=== PATIENT | male | born 1970 | race Caucasian/White ===

== ENCOUNTER 2017-09-24 16:02 | Inpatient (IN) | payer BC ==
[2017-09-24] MEDS ORDERED: SODIUM CHLORIDE 0.9% 2,000 ML IV ONE (16:17)
[2017-09-24] MEDS ORDERED: SODIUM CHLORIDE 0.9% 1,000 ML IV SCH (16:30)
[2017-09-24] MEDS ORDERED: INSULIN REGULAR BOLUS (FROM DRIP BAG) IV ONE (16:35)
--- NOTE | 2017-09-24 16:45 | ED ---
Recheck HPI - General Source: patient, RN notes reviewed, old records reviewed Mode of arrival: EMS Limitations: no limitations <Renetta Perkins - Last Filed: 09/24/17 18:18> <Sharad Nicole - Last Filed: 09/25/17 00:28> - General Chief Complaint: Recheck/Abnormal Lab/Rx Stated Complaint: hyperglycemia Time Seen by Provider: 09/24/17 16:05 - History of Present Illness Initial Comments: 47-year-old male presents emergency department today with increased thirst, fatigue, and feelings of constipation over the past 3 days. He reports he's not had a bowel movement. He reports that over the past 3 weeks she's had increased polyuria. No significan Past medical history. 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 Patient states that he has had no significant abdominal surgeries or major medical history. He states that his throat and mouth feels very dry. EMS blood sugar read above 600. Patient has no history of diabetes. (Renetta Perkins) - Related Data Home Medications Medication Instructions Recorded Confirmed No Known Home Medications 09/24/17 09/24/17 Allergies Allergy/AdvReac Type Severity Reaction Status Date / Time No Known Allergies Allergy Verified 09/24/17 18:49 Review of Systems ROS Other: All systems not noted in ROS Statement are negative. <Renetta Perkins - Last Filed: 09/24/17 18:18> ROS Other: All systems not noted in ROS Statement are negative. <Sharad Nicole - Last Filed: 09/25/17 00:28> ROS Statement: Those systems with pertinent positive or pertinent negative responses have been documented in the HPI. Past Medical History Past Medical History: No Reported History History of Any Multi-Drug Resistant Organisms: None Reported Past Surgical History: No Surgical Hx Reported Past Psychological History: No Psychological Hx Reported Smoking Status: Never smoker Past Alcohol Use History: None Reported Past Drug Use History: None Reported <Renetta Perkins - Last Filed: 09/24/17 18:18> General Exam Limitations: no limitations General appearance: alert, in no apparent distress Head exam: Present: atraumatic, normocephalic, normal inspection Eye exam: Present: normal appearance, PERRL, EOMI. Absent: scleral icterus, conjunctival injection, periorbital swelling ENT exam: Present: normal exam, mucous membranes dry (Patient has dry oropharynx. Fruity odor breath on examination.), mucous membranes moist. Absent: normal oropharynx Neck exam: Present: normal inspection. Absent: tenderness, meningismus, lymphadenopathy Respiratory exam: Present: normal lung sounds bilaterally. Absent: respiratory distress, wheezes, rales, rhonchi, stridor Cardiovascular Exam: Present: regular rate, normal rhythm, normal heart sounds. Absent: systolic murmur, diastolic murmur, rubs, gallop, clicks GI/Abdominal exam: Present: soft, normal bowel sounds. Absent: distended, tenderness, guarding, rebound, rigid Extremities exam: Present: normal inspection, full ROM, normal capillary refill. Absent: tenderness, pedal edema, joint swelling, calf tenderness Back exam: Present: normal inspection Neurological exam: Present: alert, oriented X3, CN II-XII intact Psychiatric exam: Present: normal affect, normal mood Skin exam: Present: warm, dry, intact, normal color. Absent: rash <Renetta Perkins - Last Filed: 09/24/17 18:18> <Sharad Nicole - Last Filed: 09/25/17 00:28> - General Exam Comments Initial Comments: 47-year-old male. Alert and oriented. No significant distress. (Renetta Perkins) Vital Signs 09/24/17 09/24/17 09/24/17 16:10 16:27 16:35 Temperature 97.7 F Pulse Rate 114 H 113 H Pulse Rate [ 114 H Print Traffic Manager ] Respiratory 22 20 Rate Blood Pressure 153/86 148/85 Blood Pressure [Right Arm] O2 Sat by Pulse 98 96 Oximetry 09/24/17 09/24/17 09/24/17 17:30 18:30 18:45 Temperature 99.9 F H Pulse Rate 106 H 110 H 106 H Pulse Rate [ Print Traffic Manager ] Respiratory 20 20 24 Rate Blood Pressure 151/91 168/78 145/81 Blood Pressure [Right Arm] O2 Sat by Pulse 97 99 95 Oximetry 09/24/17 09/24/17 09/24/17 19:15 20:08 20:16 Temperature 97.8 F Pulse Rate 110 H 105 H Pulse Rate [ 107 H Print Traffic Manager ] Respiratory 24 20 18 Rate Blood Pressure 144/98 127/77 Blood Pressure 133/88 [Right Arm] O2 Sat by Pulse 95 98 97 Oximetry 09/24/17 09/24/17 21:18 21:42 Temperature 97.9 F Pulse Rate 105 H 107 H Pulse Rate [ Print Traffic Manager ] Respiratory 18 Rate Blood Pressure 147/89 109/66 Blood Pressure [Right Arm] O2 Sat by Pulse 95 95 Oximetry Medical Decision Making - Lab Data Result diagrams: 09/24/17 16:33 09/24/17 16:33 - Radiology Data Radiology results: report reviewed <Renetta Perkins - Last Filed: 09/24/17 18:18> - Lab Data Result diagrams: 09/24/17 18:50 09/24/17 23:07 <Sharad Nicole - Last Filed: 09/25/17 00:28> - Medical Decision Making 7-year-old male with no past medical history presents with 3 days of fatigue, increased thirst, concern for constipation. Patient's blood sugar and EMS was about 600. Never had a history of diabetes. Patient's started on IV fluids and labs obtained. Blood sugar found to be 1513. Potassium of 7.3, slightly hemolyzed. CO2 10.Sodium of 133, chloride 90. BUN is 54. Creatinine of 2.0. Patient has an elevated lactic acid of 4.0. Acetone is positive. Patient is a new-onset diabetic with significant acidosis. Patient had an ABG completed. Patient was given a 3 L bolus and started on insulin bolus and maintenance insulin. Patient was admitted to the ICU. Consult to Dr. Conner. (Renetta Perkins) 47-year-old male with fatigue, polydipsia presenting with new-onset diabetes. Patient is found to be in HHS and DKA. Patient is tachypneic, tachycardic with dry mucous membranes. He is given normal saline bolus in the emergency department, laboratory studies reveal significant abnormalities including hyperkalemia, metabolic acidosis, CO2 of 10, sugar of 1500. Patient is started on insulin drip after insulin bolus. He will be continued to give normal saline boluses. Case is discussed with both Dr. Conner regarding ICU management as well as admitting physician Dr. Bell (Sharad Nicole) - Lab Data Lab Results 09/24/17 09/24/17 09/24/17 Range/Units 16:33 16:33 16:33 WBC 10.1 (3.8-10.6) k/uL RBC 5.60 (4.30-5.90) m/uL Hgb 15.8 (13.0-17.5) gm/dL Hct 55.3 H (39.0-53.0) % MCV 98.8 (80.0-100.0) fL MCH 28.3 (25.0-35.0) pg MCHC 28.6 L (31.0-37.0) g/dL RDW 13.9 (11.5-15.5) % Plt Count 302 (150-450) k/uL Neutrophils % 89 % Lymphocytes % 5 % Monocytes % 5 % Eosinophils % 0 % Basophils % 0 % Neutrophils # 9.0 H (1.3-7.7) k/uL Lymphocytes # 0.5 L (1.0-4.8) k/uL Monocytes # 0.5 (0-1.0) k/uL Eosinophils # 0.0 (0-0.7) k/uL Basophils # 0.0 (0-0.2) k/uL Hypochromasia Marked Sodium 133 L (137-145) mmol/L Potassium 7.3 H* (3.5-5.1) mmol/L Chloride 90 L (98-107) mmol/L Carbon Dioxide 10 L* (22-30) mmol/L Anion Gap 33 mmol/L BUN 54 H (9-20) mg/dL Creatinine 2.00 H (0.66-1.25) mg/dL Est GFR (CKD-EPI)AfAm 44 (>60 ml/min/1.73 sqM) Est GFR (CKD-EPI)NonAf 38 (>60 ml/min/1.73 sqM) Glucose 1513 H* (74-99) mg/dL POC Glucose (mg/dL) (75-99) mg/dL POC Glu Ski Lift Mechanic ID Lactic Ac Sepsis Rflx Plasma Lactic Acid Alfonso 4.0 H* (0.7-2.0) mmol/L Calcium 9.3 (8.4-10.2) mg/dL Total Bilirubin 1.4 H (0.2-1.3) mg/dL AST 31 (17-59) U/L ALT 33 (21-72) U/L Alkaline Phosphatase 151 H (38-126) U/L Total Protein 7.9 (6.3-8.2) g/dL Albumin 4.8 (3.5-5.0) g/dL Urine Color Urine Appearance (Clear) Urine pH (5.0-8.0) Ur Specific [place] (1.001-1.035) Urine Protein (Negative) Urine Glucose (UA) (Negative) Urine Ketones (Negative) Urine Blood (Negative) Urine Nitrite (Negative) Urine Bilirubin (Negative) Urine Urobilinogen (<2.0) mg/dL Ur Leukocyte Esterase (Negative) Urine RBC (0-5) /hpf Urine WBC (0-5) /hpf Urine Mucus (None) /hpf Acetone, Qual Positive (Negative) 09/24/17 09/24/17 09/24/17 Range/Units 16:59 17:10 17:23 WBC (3.8-10.6) k/uL RBC (4.30-5.90) m/uL Hgb (13.0-17.5) gm/dL Hct (39.0-53.0) % MCV (80.0-100.0) fL MCH (25.0-35.0) pg MCHC (31.0-37.0) g/dL RDW (11.5-15.5) % Plt Count (150-450) k/uL Neutrophils % % Lymphocytes % % Monocytes % % Eosinophils % % Basophils % % Neutrophils # (1.3-7.7) k/uL Lymphocytes # (1.0-4.8) k/uL Monocytes # (0-1.0) k/uL Eosinophils # (0-0.7) k/uL Basophils # (0-0.2) k/uL Hypochromasia Sodium (137-145) mmol/L Potassium (3.5-5.1) mmol/L Chloride (98-107) mmol/L Carbon Dioxide (22-30) mmol/L Anion Gap mmol/L BUN (9-20) mg/dL Creatinine (0.66-1.25) mg/dL Est GFR (CKD-EPI)AfAm (>60 ml/min/1.73 sqM) Est GFR (CKD-EPI)NonAf (>60 ml/min/1.73 sqM) Glucose (74-99) mg/dL POC Glucose (mg/dL) >600 H (75-99) mg/dL POC Glu Ski Lift Mechanic ID Gonzalo Lopez Lactic Ac Sepsis Rflx Y Plasma Lactic Acid Alfonso (0.7-2.0) mmol/L Calcium (8.4-10.2) mg/dL Total Bilirubin (0.2-1.3) mg/dL AST (17-59) U/L ALT (21-72) U/L Alkaline Phosphatase (38-126) U/L Total Protein (6.3-8.2) g/dL Albumin (3.5-5.0) g/dL Urine Color Light Yellow Urine Appearance Clear (Clear) Urine pH 5.0 (5.0-8.0) Ur Specific [place] 1.024 (1.001-1.035) Urine Protein Negative (Negative) Urine Glucose (UA) 4+ H (Negative) Urine Ketones 2+ H (Negative) Urine Blood Small H (Negative) Urine Nitrite Negative (Negative) Urine Bilirubin Negative (Negative) Urine Urobilinogen <2.0 (<2.0) mg/dL Ur Leukocyte Esterase Negative (Negative) Urine RBC <1 (0-5) /hpf Urine WBC 1 (0-5) /hpf Urine Mucus Rare H (None) /hpf Acetone, Qual (Negative) 09/24/17 Range/Units 17:52 WBC (3.8-10.6) k/uL RBC (4.30-5.90) m/uL Hgb (13.0-17.5) gm/dL Hct (39.0-53.0) % MCV (80.0-100.0) fL MCH (25.0-35.0) pg MCHC (31.0-37.0) g/dL RDW (11.5-15.5) % Plt Count (150-450) k/uL Neutrophils % % Lymphocytes % % Monocytes % % Eosinophils % % Basophils % % Neutrophils # (1.3-7.7) k/uL Lymphocytes # (1.0-4.8) k/uL Monocytes # (0-1.0) k/uL Eosinophils # (0-0.7) k/uL Basophils # (0-0.2) k/uL Hypochromasia Sodium (137-145) mmol/L Potassium (3.5-5.1) mmol/L Chloride (98-107) mmol/L Carbon Dioxide (22-30) mmol/L Anion Gap mmol/L BUN (9-20) mg/dL Creatinine (0.66-1.25) mg/dL Est GFR (CKD-EPI)AfAm (>60 ml/min/1.73 sqM) Est GFR (CKD-EPI)NonAf (>60 ml/min/1.73 sqM) Glucose (74-99) mg/dL POC Glucose (mg/dL) >600 H (75-99) mg/dL POC Glu Ski Lift Mechanic ID Gonzalo Lopez Lactic Ac Sepsis Rflx Plasma Lactic Acid Alfonso (0.7-2.0) mmol/L Calcium (8.4-10.2) mg/dL Total Bilirubin (0.2-1.3) mg/dL AST (17-59) U/L ALT (21-72) U/L Alkaline Phosphatase (38-126) U/L Total Protein (6.3-8.2) g/dL Albumin (3.5-5.0) g/dL Urine Color Urine Appearance (Clear) Urine pH (5.0-8.0) Ur Specific [place] (1.001-1.035) Urine Protein (Negative) Urine Glucose (UA) (Negative) Urine Ketones (Negative) Urine Blood (Negative) Urine Nitrite (Negative) Urine Bilirubin (Negative) Urine Urobilinogen (<2.0) mg/dL Ur Leukocyte Esterase (Negative) Urine RBC (0-5) /hpf Urine WBC (0-5) /hpf Urine Mucus (None) /hpf Acetone, Qual (Negative) 09/24/17 18:20 EKG performed at 1614. Sinus tachycardia. Otherwise normal EKG. Ventricular rate of 113. [place] interval is 148. QRS duration 68. QT QTc is 3:30/452. ( Renetta Perkins) - Radiology Data Chest x-rays negative for any acute cardiopulmonary disease. No acute abdomen. (Renetta Perkins) Critical Care Time Critical Care Time: Yes Total Critical Care Time: 35 <Sharad Nicole - Last Filed: 09/25/17 00:28> Disposition Is patient prescribed a controlled substance at d/c from ED?: No Time of Disposition: 18:22 <Renetta Perkins - Last Filed: 09/24/17 18:18> <Sharad Nicole - Last Filed: 09/25/17 00:28> Clinical Impression: DKA (diabetic ketoacidoses), Diabetes mellitus, new onset, Hyperkalemia, Renal insufficiency Disposition: ADMITTED IP TO THIS HOSP Condition: Good
[2017-09-24 17:01] LABS: Glucose,Whole Blood >600 mg/dL (75-99)
[2017-09-24 17:25] LABS: ALT 33 U/L (21-72); AST 31 U/L (17-59); Albumin 4.8 g/dL (3.5-5.0); Alkaline Phosphatase 151 U/L (38-126); Anion Gap 33 mmol/L; Blood Urea Nitrogen 54 mg/dL (9-20); Calcium 9.3 mg/dL (8.4-10.2); Chloride 90 mmol/L (98-107); Sodium 133 mmol/L (137-145); Total Bilirubin 1.4 mg/dL (0.2-1.3); Total Protein 7.9 g/dL (6.3-8.2)
--- NOTE | 2017-09-24 17:26 | XR ---
EXAMINATION TYPE: XR chest 2V DATE OF EXAM: 09/24/2017 COMPARISON: NONE HISTORY: Hyperglycemia weakness TECHNIQUE: Frontal and lateral views of the chest are obtained. FINDINGS: There is poor inspiration. There is no heart failure nor confluent pneumonic infiltrate. H eart size is normal. There is no pleural effusion. There are chest leads. Bony thorax is intact. IMPRESSION: No active cardiopulmonary disease.
--- NOTE | 2017-09-24 17:27 | XR ---
EXAMINATION TYPE: XR KUB DATE OF EXAM: 09/24/2017 COMPARISON: NONE HISTORY: Hyperglycemia TECHNIQUE: 2 views FINDINGS: There is no sign of intestinal obstruction or pneumoperitoneum. There is a large fluid-fill ed stomach. There is no evidence of a mass. Lung bases are clear. There are no pathologic calcificati ons over the kidneys. IMPRESSION: Nonacute abdomen.
[2017-09-24 17:39] LABS: Basophils % (A) 0 %; Eosinophils % (A) 0 %; HGB 15.8 gm/dL (13.0-17.5); Hypochromasia Marked; Lymphocytes # (A) 0.5 k/uL (1.0-4.8); Lymphocytes % (A) 5 %; MCH 28.3 pg (25.0-35.0); MCHC 28.6 g/dL (31.0-37.0); MCV 98.8 fL (80.0-100.0); Mean Platelet Volume 10.5; Monocytes # (A) 0.5 k/uL (0-1.0); Monocytes % (A) 5 %; Neutrophils % (A) 89 %; Platelet Count 302 k/uL (150-450); RDW 13.9 % (11.5-15.5); WBC 10.1 k/uL (3.8-10.6)
[2017-09-24 17:40] LABS: HCT 55.3 % (39.0-53.0)
[2017-09-24 17:43] LABS: Carbon Dioxide 10 mmol/L (22-30)
[2017-09-24 17:44] LABS: Potassium 7.3 mmol/L (3.5-5.1)
[2017-09-24 17:45] LABS: Glucose 1513 mg/dL (74-99)
[2017-09-24 17:47] LABS: Appearance,Urine Clear (Clear); Bilirubin,Urine Negative (Negative); Blood,Urine Small (Negative); Color,Urine Light Yellow; Glucose,Urine (UA) 4+ (Negative); Leukocyte Esterase,Urine Negative (Negative); Mucus,Urine Rare /hpf; Nitrite,Urine Negative (Negative); Protein,Urine Negative (Negative); RBC,Urine <1 /hpf (0-5); Specific Gravity,Urine 1.024 (1.001-1.035); Urobilinogen,Urine <2.0 mg/dL (<2.0); WBC,Urine 1 /hpf (0-5)
[2017-09-24 17:50] LABS: Ketones,Urine 2+ (Negative)
[2017-09-24] MEDS: INSULIN REGULAR 100 UNIT in SODIUM CHLORIDE 0.9% 100 ML IV SCH ×2 (17:52→17:54)
[2017-09-24 17:55] LABS: Glucose,Whole Blood >600 mg/dL (75-99)
[2017-09-24] MEDS ORDERED: SODIUM CHLORIDE 0.9% 1,000 ML IV ONE ×4 (17:56→19:10)
[2017-09-24] MEDS ORDERED: Magnesium Replacement Protocol 1 EACH MISC MISCELLANE PRN (18:23)
[2017-09-24] MEDS ORDERED: Potassium Replacement Protocol 1 EACH MISC MISCELLANE PRN (18:23)
[2017-09-24] MEDS ORDERED: ACETAMINOPHEN TAB 325 MG TAB PO PRN (18:24)
[2017-09-24] MEDS ORDERED: HYDROcodone/APAP 5-325MG 1 EACH TAB PO PRN (18:24)
[2017-09-24] MEDS ORDERED: NALOXONE 0.4 MG/ML 1 ML VIAL IV PRN (18:24)
[2017-09-24 18:26] LABS: ABG Base Excess -19.2 mmol/L; ABG PCO2 26 mmHg (35-45); ABG PO2 113 mmHg (83-108); ABG TCO2 10 mmol/L (19-24)
[2017-09-24 18:31] LABS: ABG HCO3 9 mmol/L (21-25); ABG PH 7.17 (7.35-7.45)
[2017-09-24 19:04] LABS: Glucose,Whole Blood >600 mg/dL (75-99)
[2017-09-24 19:22] LABS: Basophils % (A) 0 %; Eosinophils % (A) 0 %; HCT 51.2 % (39.0-53.0); HGB 15.3 gm/dL (13.0-17.5); Hypochromasia Marked; Lymphocytes # (A) 0.5 k/uL (1.0-4.8); Lymphocytes % (A) 4 %; MCH 28.3 pg (25.0-35.0); MCHC 29.8 g/dL (31.0-37.0); MCV 94.9 fL (80.0-100.0); Mean Platelet Volume 8.8; Monocytes # (A) 0.6 k/uL (0-1.0); Monocytes % (A) 4 %; Neutrophils # (A) 12.4 k/uL (1.3-7.7); Neutrophils % (A) 92 %; Platelet Count 326 k/uL (150-450); RBC 5.39 m/uL (4.30-5.90); RDW 13.9 % (11.5-15.5); WBC 13.6 k/uL (3.8-10.6)
[2017-09-24 19:35] LABS: Calcium 8.7 mg/dL (8.4-10.2); Potassium 4.8 mmol/L (3.5-5.1)
--- NOTE | 2017-09-24 20:23 | P.HPIM ---
History of Present Illness H&P Date: 09/24/17 Chief Complaint: Fatigue Patient is a 47-year-old male with no known past medical history who presented to the ER with complaints of fatigue. In the ER he underwent an extensive evaluation. He was found to have DKA. Initial laboratory analysis showed hyperglycemia, hyponatremia, acute kidney injury, glucose of 1513, elevated lactic acid, potassium of 7.3, and an anion gap metabolic acidosis. He was also found to have a positive serum acetone. Initial ABG showed a pH of 7.17. Initial KUB and chest x-ray were negative. Urinalysis did not show any signs of infection. He was given 2L of fluid and started on on an insulin drip. Suggested was made for admission to ICU however there is no bed in the ICU and he was held in the ER the ICU hold. Patient seen and examined at bedside in the ER. He states that he began feeling more fatigued approximately 2 weeks ago. In the last 2 days he has had a sudden decline. He reports increased thirst, dry mouth, increased urination, and fatigue. His sister has noticed increased confusion today. He denies any shortness of breath. He doesn't have any belly pain but feels constipated. He had some nausea and a headache today. In the last couple of weeks he's had some numbness in his left pinky finger. For the last 2 weeks he has noticed change in his in his vision and was seen by an clothing supervisor who recommended a change in prescription. Yesterday he had an episode of double vision. He does not follow with the PCP regularly and has no known chronic medical condition. He denies any cough, cold, fever, flu, or recent illness. Review of Systems Pertinent positives and negatives as discussed in HPI, a complete review of systems was performed and all other systems are negative. 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 No significant issues noted on an osteopathic structural exam other than those noted in the History and Physical/Consult. Vitals: Vital Signs Temp Pulse Pulse Resp BP Pulse Ox 09/24/17 18:30 110 H 20 168/78 99 09/24/17 17:30 106 H 20 151/91 97 09/24/17 16:35 113 H 20 148/85 96 09/24/17 16:27 114 H 09/24/17 16:10 97.7 F 114 H 22 153/86 98 Intake and Output 09/24/17 09/24/17 09/24/17 06:59 14:59 22:59 Intake Total 0.366 Output Total 900 Balance -899.634 Intake: Intake, IV Titration 0.366 Amount Insulin Regular 100 unit 0.366 In Sodium Chloride 0.9% 100 ml @ 0.1 UNITS/KG/HR 10.99 mls/hr IV .Q9H12M [facility] Rx#:[id number] Output: Urine 900 Other: Voiding Method Toilet Weight 108.862 kg General: Ill appearing, moderate distress, appears at stated age, obese Derm: no unusual rashes/lesions no unusual ecchymoses, warm, dry Head: atraumatic, normocephalic, symmetric Eyes: EOMI, no lid lag, anicteric sclera, pupils equal round reactive to light ENT: Nose and ears atraumatic, no thrush, no pharyngeal erythema Neck: No thyromegaly, no cervical lymphadenopathy, trachea midline, supple Mouth: no lip lesion, mucus membranes dry Cardiovascular: S1 and S2 tachycardic, no murmur, positive posterior tibial pulse bilateral, no edema, capillary refill less than 2 seconds Lungs: Sounds bilateral bases, no rhonchi, no rales , + accessory muscle use, + 2 word conversational dyspnea Abdominal: soft, nontender to palpation, no guarding, no appreciable organomegaly, normal bowel sounds Ext: no gross muscle atrophy, moving all 4 extremities and muscle strength appears grossly intact, no contractures, Neuro: CN II-XI grossly intact, light touch intact all 4 extremities, finger to nose within normal limits, Psych: Alert but lethargic and falls asleep quickly., oriented, appropriate affect Results CBC & Chem 7: 09/24/17 18:50 09/24/17 18:50 Labs: Abnormal Lab Results - Last 24 Hours (Table) 09/24/17 09/24/17 09/24/17 Range/Units 16:33 16:33 16:33 Hct 55.3 H (39.0-53.0) % MCHC 28.6 L (31.0-37.0) g/dL Neutrophils # 9.0 H (1.3-7.7) k/uL Lymphocytes # 0.5 L (1.0-4.8) k/uL ABG pH (7.35-7.45) ABG pCO2 (35-45) mmHg ABG pO2 (83-108) mmHg ABG HCO3 (21-25) mmol/L ABG Total CO2 (19-24) mmol/L ABG O2 Saturation (94-97) % Sodium 133 L (137-145) mmol/L Potassium 7.3 H* (3.5-5.1) mmol/L Chloride 90 L (98-107) mmol/L Carbon Dioxide 10 L* (22-30) mmol/L BUN 54 H (9-20) mg/dL Creatinine 2.00 H (0.66-1.25) mg/dL Glucose 1513 H* (74-99) mg/dL POC Glucose (mg/dL) (75-99) mg/dL Plasma Lactic Acid Alfonso 4.0 H* (0.7-2.0) mmol/L Total Bilirubin 1.4 H (0.2-1.3) mg/dL Alkaline Phosphatase 151 H (38-126) U/L Urine Glucose (UA) (Negative) Urine Ketones (Negative) Urine Blood (Negative) Urine Mucus (None) /hpf 09/24/17 09/24/17 09/24/17 Range/Units 16:59 17:10 17:52 Hct (39.0-53.0) % MCHC (31.0-37.0) g/dL Neutrophils # (1.3-7.7) k/uL Lymphocytes # (1.0-4.8) k/uL ABG pH (7.35-7.45) ABG pCO2 (35-45) mmHg ABG pO2 (83-108) mmHg ABG HCO3 (21-25) mmol/L ABG Total CO2 (19-24) mmol/L ABG O2 Saturation (94-97) % Sodium (137-145) mmol/L Potassium (3.5-5.1) mmol/L Chloride (98-107) mmol/L Carbon Dioxide (22-30) mmol/L BUN (9-20) mg/dL Creatinine (0.66-1.25) mg/dL Glucose (74-99) mg/dL POC Glucose (mg/dL) >600 H >600 H (75-99) mg/dL Plasma Lactic Acid Alfonso (0.7-2.0) mmol/L Total Bilirubin (0.2-1.3) mg/dL Alkaline Phosphatase (38-126) U/L Urine Glucose (UA) 4+ H (Negative) Urine Ketones 2+ H (Negative) Urine Blood Small H (Negative) Urine Mucus Rare H (None) /hpf 09/24/17 09/24/17 Range/Units 18:23 18:54 Hct (39.0-53.0) % MCHC (31.0-37.0) g/dL Neutrophils # (1.3-7.7) k/uL Lymphocytes # (1.0-4.8) k/uL ABG pH 7.17 L* (7.35-7.45) ABG pCO2 26 L (35-45) mmHg ABG pO2 113 H (83-108) mmHg ABG HCO3 9 L* (21-25) mmol/L ABG Total CO2 10 L (19-24) mmol/L ABG O2 Saturation 98.0 H (94-97) % Sodium (137-145) mmol/L Potassium (3.5-5.1) mmol/L Chloride (98-107) mmol/L Carbon Dioxide (22-30) mmol/L BUN (9-20) mg/dL Creatinine (0.66-1.25) mg/dL Glucose (74-99) mg/dL POC Glucose (mg/dL) >600 H (75-99) mg/dL Plasma Lactic Acid Alfonso (0.7-2.0) mmol/L Total Bilirubin (0.2-1.3) mg/dL Alkaline Phosphatase (38-126) U/L Urine Glucose (UA) (Negative) Urine Ketones (Negative) Urine Blood (Negative) Urine Mucus (None) /hpf Chest x-ray: report reviewed, image reviewed (No acute process) Abdominal x-ray: report reviewed Thrombosis Risk Factor Assmnt - DVT/VTE Prophylaxis DVT/VTE Prophylaxis: Pharmacologic Prophylaxis ordered Assessment and Plan Assessment: DKA with likely component of HHS -We will need serum glucose every hour as patient glucose levels are unreadable with [id number] glucose testing -Electrolytes, magnesium, and phosphorus every 4 hours -Insulin drip -Check hemoglobin A1c -Additional 1 L IV fluid bolus and then 0.45 normal saline at 200 mL/h -Repeat ABG in 1 hour -Admitted to ICU with critical care consultation -Dietitian and tobacco prevention health educator consultation -Will need PCP on discharge Severe metabolic acidosis secondary to above -Repeat ABG in 1 hour -Monitor closely for respiratory decompensation Hypernatremia when sodium is corrected for glucose level-corrected rate is currently 159 -Transition IV fluids to half-normal saline - Repeat electrolytes every 4 hours -Suspect due to dehydration and aggressive fluid resuscitation with normal saline Hyperkalemia -Resolved after fluid resuscitation Acute kidney injury -Likely secondary to dehydration -Continue with IV fluids -Repeat basic metabolic profile in a.m. -Avoid additional nephrotoxic agents -If no improvement in a.m. we'll consider nephrology consult and renal ultrasound Elevated lactic acid likely secondary to hypoperfusion -IV fluids -Recheck in 6 hours Morbid obesity -Sheltered outpatient weight loss
[2017-09-24 20:57] LABS: ABG Base Excess -13.5 mmol/L; ABG HCO3 14 mmol/L (21-25); ABG Oxygen Saturation 96.5 % (94-97); ABG PCO2 31 mmHg (35-45); ABG PH 7.26 (7.35-7.45); ABG PO2 85 mmHg (83-108); ABG TCO2 15 mmol/L (19-24)
[2017-09-24 21:06] LABS: Phosphorus 3.6 mg/dL (2.5-4.5); Potassium 4.8 mmol/L (3.5-5.1)
[2017-09-24] MEDS: SODIUM CHLORIDE 0.45% 1,000 ML IV SCH (21:36)
[2017-09-25] MEDS: DOCUSATE 100 MG CAP PO SCH ×3 (00:13→20:47)
[2017-09-25 00:54] LABS: Phosphorus 2.7 mg/dL (2.5-4.5); Potassium 4.8 mmol/L (3.5-5.1)
[2017-09-25 01:17] LABS: Appearance,Urine Clear (Clear); Bacteria,Urine Rare /hpf; Bilirubin,Urine Negative (Negative); Blood,Urine Small (Negative); Color,Urine Light Yellow; Glucose,Urine (UA) 4+ (Negative); Leukocyte Esterase,Urine Negative (Negative); Mucus,Urine Rare /hpf; Nitrite,Urine Negative (Negative); Protein,Urine Negative (Negative); RBC,Urine 4 /hpf (0-5); Specific Gravity,Urine 1.027 (1.001-1.035); Urobilinogen,Urine <2.0 mg/dL (<2.0); WBC,Urine 1 /hpf (0-5)
[2017-09-25 01:26] LABS: Ketones,Urine 2+ (Negative)
[2017-09-25] MEDS: SODIUM CHLORIDE 0.45% 1,000 ML IV SCH ×2 (01:30→06:41)
[2017-09-25 03:04] LABS: Glucose,Whole Blood 405 mg/dL (75-99)
[2017-09-25 04:00] LABS: Glucose,Whole Blood 313 mg/dL (75-99)
[2017-09-25] MEDS ORDERED: DEXTROSE 5%-0.45% NACL 1,000 ML with POTASSIUM CHLORIDE 20 MEQ IV SCH ×2 (04:00)
[2017-09-25 05:01] LABS: Basophils % (A) 0 %; Eosinophils # (A) 0.1 k/uL (0-0.7); Eosinophils % (A) 1 %; HCT 44.8 % (39.0-53.0); HGB 14.5 gm/dL (13.0-17.5); Lymphocytes # (A) 0.7 k/uL (1.0-4.8); Lymphocytes % (A) 6 %; MCH 28.5 pg (25.0-35.0); MCHC 32.3 g/dL (31.0-37.0); Mean Platelet Volume 7.4; Monocytes # (A) 0.6 k/uL (0-1.0); Monocytes % (A) 6 %; Neutrophils % (A) 87 %; Platelet Count 307 k/uL (150-450); RBC 5.08 m/uL (4.30-5.90); RDW 14.3 % (11.5-15.5); WBC 11.6 k/uL (3.8-10.6)
[2017-09-25 05:07] LABS: Glucose,Whole Blood 285 mg/dL (75-99)
[2017-09-25 05:12] LABS: Albumin 3.7 g/dL (3.5-5.0); Calcium 8.8 mg/dL (8.4-10.2); Magnesium 3.5 mg/dL (1.6-2.3); Phosphorus 2.7 mg/dL (2.5-4.5); Potassium 4.4 mmol/L (3.5-5.1); Total Bilirubin 0.8 mg/dL (0.2-1.3); Total Protein 6.9 g/dL (6.3-8.2)
[2017-09-25 05:20] LABS: MCV 88.1 fL (80.0-100.0)
[2017-09-25 06:01] LABS: Glucose,Whole Blood 369 mg/dL (75-99)
[2017-09-25] MEDS ORDERED: INSULIN REGULAR 100 UNIT in SODIUM CHLORIDE 0.9% 100 ML IV SCH (06:15)
[2017-09-25 07:05] LABS: Glucose,Whole Blood 289 mg/dL (75-99)
[2017-09-25 08:14] LABS: Glucose,Whole Blood 290 mg/dL (75-99)
[2017-09-25] MEDS: ENOXAPARIN 40 MG/0.4 ML SYRINGE SQ SCH (08:41)
[2017-09-25 09:20] LABS: Glucose,Whole Blood 321 mg/dL (75-99)
[2017-09-25 10:08] LABS: Glucose,Whole Blood 323 mg/dL (75-99)
[2017-09-25] MEDS ORDERED: INSULIN DETEMIR 100 UNIT/ML 10 ML VIAL SQ SCH ×2 (10:15→21:00)
[2017-09-25] MEDS: NYSTATIN 100,000 UNIT/ML SUSP 500,000 UNIT/5 ML CUP PO SCH ×3 (10:45→20:58)
[2017-09-25 11:13] LABS: Glucose,Whole Blood 270 mg/dL (75-99)
--- NOTE | 2017-09-25 11:36 | P.CNPUL ---
History of Present Illness Consult date: 09/25/17 Chief complaint: Hyperglycemia, DKA History of present illness: A 47-year-old male patient, healthy without any known history comes in to the emergency department with profound fatigue and dehydration and subsequently was diagnosed having a DKA. He was hyperglycemic. Initial blood sugar was 1513. He was hyponatremic. He had elevated potassium of 7.3. He was in anion gap metabolic acidosis. He was positive for serum acetone. Initial pH was at 7.1 and the patient was compensating with respiratory efforts. The patient was given immediately fluids. A total of 2 L was given in the emergency and the patient was started on nitroglycerin drip and subsequently the patient got transferred to the intensive care unit where became protocol was initiated and the patient had routine monitoring of electrolytes with subsequent improvement of the anion gap and complete closure this morning. He is still on insulin drip for now. He will be transitioned to long-acting insulin for now. No fever. No chills. No cough or sputum production. No hemoptysis. No nausea vomiting. No altered mentation. He does have some oropharyngeal thrush. No previous history of diabetes mellitus. No recent weight gain or weight loss. No history of pancreatitis. His most recent anion gap is down to 9. Serum bicarbs up to 21. Potassium level is at 4.4. Review of Systems Constitutional: Reports fatigue, Reports lethargy, Reports weakness Eyes: bilateral blurred vision, bilateral decreased vision, denies bulging eye Ears: deny: decreased hearing, ear discharge, earache, tinnitus Ears, nose, mouth and throat: Denies headache, Denies sore throat Cardiovascular: Denies chest pain, Denies shortness of breath Respiratory: Denies cough Gastrointestinal: Denies abdominal pain, Denies diarrhea, Denies nausea, Denies vomiting Genitourinary: Reports as per HPI Musculoskeletal: Reports as per HPI Musculoskeletal: absent: ankle pain, ankle stiffness, ankle swelling Integumentary: Denies pruritus, Denies rash Neurological: Reports weakness, Denies numbness Psychiatric: Denies anxiety, Denies depression Endocrine: Reports excessive thirst, Reports fatigue, Reports high blood sugars , Reports polydipsia, Reports polyuria Hematologic/Lymphatic: Reports as per HPI Allergic/Immunologic: Reports as per HPI Past Medical History Past Medical History: No Reported History History of Any Multi-Drug Resistant Organisms: None Reported Past Surgical History: No Surgical Hx Reported Past Psychological History: No Psychological Hx Reported Smoking Status: Never smoker Past Alcohol Use History: None Reported Past Drug Use History: None Reported - Past Family History Father Additional Family Medical History / Comment(s): from heart disease Mother Additional Family Medical History / Comment(s): from COPD, lung cancer Medications and Allergies Home Medications Medication Instructions Recorded Confirmed Type No Known Home Medications 09/24/17 09/24/17 History Allergies Allergy/AdvReac Type Severity Reaction Status Date / Time No Known Allergies Allergy Verified 09/24/17 18:49 Physical Exam Vitals: Vital Signs Temp Pulse Pulse Resp BP BP Pulse Ox 09/25/17 10:30 92 25 H 123/73 95 09/25/17 10:00 94 27 H 142/75 97 09/25/17 09:30 92 29 H 140/77 96 09/25/17 09:00 93 24 130/65 95 09/25/17 08:40 98 09/25/17 08:30 91 23 131/72 99 09/25/17 08:00 98.2 F 87 18 142/73 100 09/25/17 07:30 91 20 138/77 100 09/25/17 07:00 83 22 112/69 99 09/25/17 06:30 94 20 140/75 99 09/25/17 06:00 92 22 124/75 99 09/25/17 05:30 97 21 127/84 97 09/25/17 05:00 95 21 132/78 98 09/25/17 04:30 95 18 118/74 97 09/25/17 04:00 98.4 F 95 17 138/75 99 09/25/17 03:30 95 15 119/75 99 09/25/17 03:00 93 19 114/68 97 09/25/17 02:30 102 H 23 129/76 98 09/25/17 02:00 98 20 117/71 97 09/25/17 01:30 100 21 114/78 99 09/25/17 01:00 100 21 117/73 97 09/25/17 00:30 101 H 22 123/71 98 09/25/17 00:00 98 F 98 19 108/78 97 09/24/17 23:33 101 H 19 115/70 95 09/24/17 23:30 103 H 21 115/70 95 09/24/17 23:00 103 H 20 123/69 96 09/24/17 22:30 107 H 23 136/73 96 09/24/17 22:05 107 H 20 98 09/24/17 22:00 108 H 22 133/88 99 09/24/17 21:56 97.8 F 109 H 09/24/17 21:42 107 H 109/66 95 09/24/17 21:18 97.9 F 105 H 18 147/89 95 09/24/17 20:16 105 H 18 127/77 97 09/24/17 20:08 97.8 F 107 H 20 133/88 98 09/24/17 19:15 110 H 24 144/98 95 09/24/17 18:45 99.9 F H 106 H 24 145/81 95 09/24/17 18:30 110 H 20 168/78 99 09/24/17 17:30 106 H 20 151/91 97 09/24/17 16:35 113 H 20 148/85 96 09/24/17 16:27 114 H 09/24/17 16:10 97.7 F 114 H 22 153/86 98 Intake and Output 09/24/17 09/25/17 09/25/17 22:59 06:59 14:59 Intake Total 055.551 7532 606.005 Output Total 2200 1545 390 Balance -1999.634 -45 216.005 Intake: IV 200 1500 600 Dextrose 5%-0.45% NaCl 1, 300 600 000 ml @ 150 mls/hr IV . Q6H44M [facility] with Potassium Chloride 20 meq Rx#: [id number] Sodium Chloride 0.45% 1, 200 1200 000 ml @ 200 mls/hr IV . Q5H [facility] Rx#:[id number] Intake, IV Titration 0.366 6.005 Amount Insulin Regular 100 unit 0.366 In Sodium Chloride 0.9% 100 ml @ 0.1 UNITS/KG/HR 10.99 mls/hr IV .Q9H12M [facility] Rx#:[id number] Insulin Regular 100 unit 6.005 In Sodium Chloride 0.9% 100 ml @ 11.9 UNIT/HR 12. 01 mls/hr IV .Q8H25M [facility] Rx#:[id number] Output: Urine 2200 1545 390 Other: Voiding Method Toilet Indwelling Catheter Indwelling Catheter Weight 107.1 kg 108.4 kg General: Ill appearing, moderate distress, appears at stated age, obese Derm: no unusual rashes/lesions no unusual ecchymoses, warm, dry Head: atraumatic, normocephalic, symmetric Eyes: EOMI, no lid lag, anicteric sclera, pupils equal round reactive to light ENT: Nose and ears atraumatic, no thrush, no pharyngeal erythema Neck: No thyromegaly, no cervical lymphadenopathy, trachea midline, supple Mouth: no lip lesion, mucus membranes dry Cardiovascular: S1 and S2 tachycardic, no murmur, positive posterior tibial pulse bilateral, no edema, capillary refill less than 2 seconds Lungs: Sounds bilateral bases, no rhonchi, no rales , + accessory muscle use, + 2 word conversational dyspnea Abdominal: soft, nontender to palpation, no guarding, no appreciable organomegaly, normal bowel sounds Ext: no gross muscle atrophy, moving all 4 extremities and muscle strength appears grossly intact, no contractures, Neuro: CN II-XI grossly intact, light touch intact all 4 extremities, finger to nose within normal limits, Psych: Alert but lethargic and falls asleep quickly., oriented, appropriate affect Results - Laboratory Findings CBC and BMP: 09/25/17 04:36 09/25/17 04:36 ABG ABG pH 7.26 (7.35-7.45) L 09/24/17 20:54 ABG pCO2 31 mmHg (35-45) L 09/24/17 20:54 ABG pO2 85 mmHg (83-108) 09/24/17 20:54 ABG O2 Saturation 96.5 % (94-97) 09/24/17 20:54 Abnormal lab findings: Abnormal Labs 09/24/17 09/24/17 09/24/17 16:33 16:33 16:33 WBC Hct 55.3 H MCHC 28.6 L Neutrophils # 9.0 H Lymphocytes # 0.5 L ABG pH ABG pCO2 ABG pO2 ABG HCO3 ABG Total CO2 ABG O2 Saturation Sodium 133 L Potassium 7.3 H* Chloride 90 L Carbon Dioxide 10 L* BUN 54 H Creatinine 2.00 H Glucose 1513 H* POC Glucose (mg/dL) Plasma Lactic Acid Alfonso 4.0 H* Magnesium Total Bilirubin 1.4 H AST Alkaline Phosphatase 151 H Urine Glucose (UA) Urine Ketones Urine Blood Urine Bacteria Urine Mucus 09/24/17 09/24/17 09/24/17 16:59 17:10 17:52 WBC Hct MCHC Neutrophils # Lymphocytes # ABG pH ABG pCO2 ABG pO2 ABG HCO3 ABG Total CO2 ABG O2 Saturation Sodium Potassium Chloride Carbon Dioxide BUN Creatinine Glucose POC Glucose (mg/dL) >600 H >600 H Plasma Lactic Acid Alfonso Magnesium Total Bilirubin AST Alkaline Phosphatase Urine Glucose (UA) 4+ H Urine Ketones 2+ H Urine Blood Small H Urine Bacteria Urine Mucus Rare H 09/24/17 09/24/17 09/24/17 18:23 18:50 18:50 WBC 13.6 H Hct MCHC 29.8 L Neutrophils # 12.4 H Lymphocytes # 0.5 L ABG pH 7.17 L* ABG pCO2 26 L ABG pO2 113 H ABG HCO3 9 L* ABG Total CO2 10 L ABG O2 Saturation 98.0 H Sodium Potassium Chloride Carbon Dioxide 9 L* BUN 50 H Creatinine 1.70 H Glucose 1215 H* POC Glucose (mg/dL) Plasma Lactic Acid Alfonso Magnesium Total Bilirubin AST Alkaline Phosphatase Urine Glucose (UA) Urine Ketones Urine Blood Urine Bacteria Urine Mucus 09/24/17 09/24/17 09/24/17 18:54 20:27 20:27 WBC Hct MCHC Neutrophils # Lymphocytes # ABG pH ABG pCO2 ABG pO2 ABG HCO3 ABG Total CO2 ABG O2 Saturation Sodium Potassium Chloride 109 H Carbon Dioxide 12 L BUN Creatinine 1.50 H Glucose 1037 H* POC Glucose (mg/dL) >600 H Plasma Lactic Acid Alfonso 2.1 H* Magnesium Total Bilirubin AST Alkaline Phosphatase Urine Glucose (UA) Urine Ketones Urine Blood Urine Bacteria Urine Mucus 09/24/17 09/24/17 09/24/17 20:54 22:07 23:07 WBC Hct MCHC Neutrophils # Lymphocytes # ABG pH 7.26 L ABG pCO2 31 L ABG pO2 ABG HCO3 14 L ABG Total CO2 15 L ABG O2 Saturation Sodium Potassium Chloride Carbon Dioxide BUN Creatinine Glucose 850 H* 720 H* POC Glucose (mg/dL) Plasma Lactic Acid Alfonso Magnesium Total Bilirubin AST Alkaline Phosphatase Urine Glucose (UA) Urine Ketones Urine Blood Urine Bacteria Urine Mucus 09/25/17 09/25/17 09/25/17 00:19 00:24 01:45 WBC Hct MCHC Neutrophils # Lymphocytes # ABG pH ABG pCO2 ABG pO2 ABG HCO3 ABG Total CO2 ABG O2 Saturation Sodium 146 H Potassium Chloride 115 H Carbon Dioxide 17 L BUN Creatinine 1.30 H Glucose 622 H* 501 H* POC Glucose (mg/dL) Plasma Lactic Acid Alfonso Magnesium Total Bilirubin AST Alkaline Phosphatase Urine Glucose (UA) 4+ H Urine Ketones 2+ H Urine Blood Small H Urine Bacteria Rare H Urine Mucus Rare H 09/25/17 09/25/17 09/25/17 03:02 03:57 04:36 WBC 11.6 H Hct MCHC Neutrophils # 10.0 H Lymphocytes # 0.7 L ABG pH ABG pCO2 ABG pO2 ABG HCO3 ABG Total CO2 ABG O2 Saturation Sodium Potassium Chloride Carbon Dioxide BUN Creatinine Glucose POC Glucose (mg/dL) 405 H 313 H Plasma Lactic Acid Alfonso Magnesium Total Bilirubin AST Alkaline Phosphatase Urine Glucose (UA) Urine Ketones Urine Blood Urine Bacteria Urine Mucus 09/25/17 09/25/17 09/25/17 04:36 05:05 05:59 WBC Hct MCHC Neutrophils # Lymphocytes # ABG pH ABG pCO2 ABG pO2 ABG HCO3 ABG Total CO2 ABG O2 Saturation Sodium 146 H Potassium Chloride 116 H Carbon Dioxide 21 L BUN 33 H Creatinine Glucose 382 H POC Glucose (mg/dL) 285 H 369 H Plasma Lactic Acid Alfonso Magnesium 3.5 H Total Bilirubin AST 15 L Alkaline Phosphatase Urine Glucose (UA) Urine Ketones Urine Blood Urine Bacteria Urine Mucus 09/25/17 09/25/17 09/25/17 07:03 08:12 09:18 WBC Hct MCHC Neutrophils # Lymphocytes # ABG pH ABG pCO2 ABG pO2 ABG HCO3 ABG Total CO2 ABG O2 Saturation Sodium Potassium Chloride Carbon Dioxide BUN Creatinine Glucose POC Glucose (mg/dL) 289 H 290 H 321 H Plasma Lactic Acid Alfonso Magnesium Total Bilirubin AST Alkaline Phosphatase Urine Glucose (UA) Urine Ketones Urine Blood Urine Bacteria Urine Mucus 09/25/17 09/25/17 10:07 11:11 WBC Hct MCHC Neutrophils # Lymphocytes # ABG pH ABG pCO2 ABG pO2 ABG HCO3 ABG Total CO2 ABG O2 Saturation Sodium Potassium Chloride Carbon Dioxide BUN Creatinine Glucose POC Glucose (mg/dL) 323 H 270 H Plasma Lactic Acid Alfonso Magnesium Total Bilirubin AST Alkaline Phosphatase Urine Glucose (UA) Urine Ketones Urine Blood Urine Bacteria Urine Mucus - Diagnostic Findings Chest x-ray: image reviewed Assessment and Plan Plan: Assessment 1. New-onset diabetes mellitus, likely a type 2 diabetes despite the fact that the patient's had ketones in his blood and the presentation was indicating DKA rather than HHS. The patient was resuscitated adequately. The patient was treated with IV fluids and insulin drip and anion gap closed and the patient's electrodes have also normalized 2 anion gap metabolic acidosis, recovered 3 hyperkalemia recovered 4 acute kidney injury, improving 5 acute lactic acidosis, improving 6 diabetes mellitus 7 oropharyngeal thrush 8 morbid obesity Plan Diabetes education. Switch this patient to long-acting insulin and he'll be given 40 units of Levemir twice a day in addition to NovoLog 12 units with meals based on a scale. Monitor the blood sugar. Stop insulin drip. Kept on IV fluids to KVO. Nystatin to swish and swallow. The patient got moved out of the intensive care unit. Increased level of activity as tolerated. Increased diet. Successful treatment of DKA.
[2017-09-25 11:50] LABS: Glucose,Whole Blood 271 mg/dL (75-99)
[2017-09-25] MEDS ORDERED: INSULIN ASPART 100 UNIT/ML 1 ML 10 ML VIAL SQ SCH (12:30)
[2017-09-25] MEDS: PANTOPRAZOLE 40 MG/10 ML VIAL IV SCH (12:43)
[2017-09-25] MEDS: INSULIN ASPART 100 UNIT/ML 1 ML 10 ML VIAL SQ SCH ×5 (12:43→21:00)
[2017-09-25 13:06] VITALS: BMI 35.2
[2017-09-25 13:57] LABS: Anion Gap 8 mmol/L; Blood Urea Nitrogen 24 mg/dL (9-20); Calcium 8.1 mg/dL (8.4-10.2); Carbon Dioxide 20 mmol/L (22-30); Chloride 112 mmol/L (98-107); Glucose 327 mg/dL (74-99); Potassium 4.4 mmol/L (3.5-5.1); Sodium 140 mmol/L (137-145)
[2017-09-25 17:01] LABS: Glucose,Whole Blood 354 mg/dL (75-99)
--- NOTE | 2017-09-25 18:36 | P.PN ---
Subjective Progress Note Date: 09/25/17 (delayed charting seen at approximately 9 am) Principal diagnosis: dry mouth Patient is a 47-year-old male with no known past medical history who presented to the ER with complaints of fatigue. In the ER he underwent an extensive evaluation. He was found to have DKA. Initial laboratory analysis showed hyperglycemia, hyponatremia, acute kidney injury, glucose of 1513, elevated lactic acid, potassium of 7.3, and an anion gap metabolic acidosis. He was also found to have a positive serum acetone. Initial ABG showed a pH of 7.17. Initial KUB and chest x-ray were negative. Urinalysis did not show any signs of infection. He was given 2L of fluid and started on on an insulin drip. Suggested was made for admission to ICU. He received another liter of normal saline. His repeat basic metabolic profile showed hypernatremia when corrected for the glucose. His IV fluids were transitioned to 0.45 normal saline and he was maintained on an insulin drip. He had serial electrolytes, magnesium, phosphorus levels every 4 hours. He had low glucose monitoring every 1 hour. By the morning of 09/25 his anion gap was closed for 2 blood draws. He was subsequently transitioned off the insulin drip and onto Levemir twice daily, insulin sliding scale, and NovoLog fixed dose with meals. He was seen by pulmonary. He was also evaluated by the dietitian. He was found have thrush and was started on nystatin. Patient seen and examined at bedside. He is feeling much better than yesterday. No chest pain, shortness of breath, nausea, vomiting, or lower extremity edema. We had a long discussion regarding diabetes. His close need for follow-up. Assessment by an hourly associate. Assessment by an bookkeeping assistant for dilated eye exam. Diabetic foot exam. He will follow-up with the PCP. He is also very motivated to change his eating habits and gain control of this disease process. Questions answered. Case discussed with nursing at bedside and plan for transition off of insulin drip. If he is able to maintain off insulin drip will be transferred to [facility]. Objective - Vital Signs Vital signs: Vital Signs Temp 98.3 F 09/25/17 16:00 Pulse 85 09/25/17 16:00 Resp 21 09/25/17 16:00 BP 139/81 09/25/17 16:00 Pulse Ox 99 09/25/17 16:00 Intake & Output 09/24/17 09/25/17 09/25/17 18:59 06:59 18:59 Intake Total 0.366 1700 906.005 Output Total 900 2845 755 Balance -899.634 -1145 151.005 Weight 108.862 kg 108.4 kg 108.4 kg Intake: IV 1700 900 Dextrose 5%-0.45% NaCl 1, 300 900 000 ml @ 150 mls/hr IV . Q6H44M BRANDYN with Potassium Chloride 20 meq Rx#: [id number] Sodium Chloride 0.45% 1, 1400 000 ml @ 200 mls/hr IV . Q5H BRANDYN Rx#:[id number] Intake, IV Titration 0.366 6.005 Amount Insulin Regular 100 unit 0.366 In Sodium Chloride 0.9% 100 ml @ 0.1 UNITS/KG/HR 10.99 mls/hr IV .Q9H12M BRANDYN Rx#:[id number] Insulin Regular 100 unit 6.005 In Sodium Chloride 0.9% 100 ml @ 11.9 UNIT/HR 12. 01 mls/hr IV .Q8H25M BRANDYN Rx#:[id number] Output: Urine 900 2845 755 Other: Voiding Method Toilet Indwelling Catheter Urinal - Exam General: non toxic, no distress, appears at stated age, Obese Derm: warm, dry Head: atraumatic, normocephalic, symmetric Eyes: EOMI, no lid lag, anicteric sclera Mouth: no lip lesion, mucus membranes moist Cardiovascular: S1S2 reg, no murmur, positive posterior tibial pulse bilateral, Lungs: decreased bs b/l bases, no rhonchi, no rales , no accessory muscle use Abdominal: soft, nontender to palpation, no guarding, no appreciable organomegaly Ext: no gross muscle atrophy, no edema, no contractures Neuro: CN II-XI grossly intact, no focal neuro deficits Psych: Alert, oriented, appropriate affect - Labs CBC & Chem 7: 09/25/17 04:36 09/25/17 13:14 Labs: Abnormal Lab Results - Last 24 Hours (Table) 09/24/17 09/24/17 09/24/17 Range/Units 16:33 16:33 17:10 WBC (3.8-10.6) k/uL Hct 55.3 H (39.0-53.0) % MCHC 28.6 L (31.0-37.0) g/dL Neutrophils # 9.0 H (1.3-7.7) k/uL Lymphocytes # 0.5 L (1.0-4.8) k/uL ABG pH (7.35-7.45) ABG pCO2 (35-45) mmHg ABG pO2 (83-108) mmHg ABG HCO3 (21-25) mmol/L ABG Total CO2 (19-24) mmol/L ABG O2 Saturation (94-97) % Sodium 133 L (137-145) mmol/L Potassium 7.3 H* (3.5-5.1) mmol/L Chloride 90 L (98-107) mmol/L Carbon Dioxide 10 L* (22-30) mmol/L BUN 54 H (9-20) mg/dL Creatinine 2.00 H (0.66-1.25) mg/dL Glucose 1513 H* (74-99) mg/dL POC Glucose (mg/dL) (75-99) mg/dL Plasma Lactic Acid Alfonso (0.7-2.0) mmol/L Calcium (8.4-10.2) mg/dL Magnesium (1.6-2.3) mg/dL Total Bilirubin 1.4 H (0.2-1.3) mg/dL AST (17-59) U/L Alkaline Phosphatase 151 H (38-126) U/L Urine Glucose (UA) 4+ H (Negative) Urine Ketones 2+ H (Negative) Urine Blood Small H (Negative) Urine Bacteria (None) /hpf Urine Mucus Rare H (None) /hpf 09/24/17 09/24/17 09/24/17 Range/Units 17:52 18:23 18:50 WBC 13.6 H (3.8-10.6) k/uL Hct (39.0-53.0) % MCHC 29.8 L (31.0-37.0) g/dL Neutrophils # 12.4 H (1.3-7.7) k/uL Lymphocytes # 0.5 L (1.0-4.8) k/uL ABG pH 7.17 L* (7.35-7.45) ABG pCO2 26 L (35-45) mmHg ABG pO2 113 H (83-108) mmHg ABG HCO3 9 L* (21-25) mmol/L ABG Total CO2 10 L (19-24) mmol/L ABG O2 Saturation 98.0 H (94-97) % Sodium (137-145) mmol/L Potassium (3.5-5.1) mmol/L Chloride (98-107) mmol/L Carbon Dioxide (22-30) mmol/L BUN (9-20) mg/dL Creatinine (0.66-1.25) mg/dL Glucose (74-99) mg/dL POC Glucose (mg/dL) >600 H (75-99) mg/dL Plasma Lactic Acid Alfonso (0.7-2.0) mmol/L Calcium (8.4-10.2) mg/dL Magnesium (1.6-2.3) mg/dL Total Bilirubin (0.2-1.3) mg/dL AST (17-59) U/L Alkaline Phosphatase (38-126) U/L Urine Glucose (UA) (Negative) Urine Ketones (Negative) Urine Blood (Negative) Urine Bacteria (None) /hpf Urine Mucus (None) /hpf 09/24/17 09/24/17 09/24/17 Range/Units 18:50 18:54 20:27 WBC (3.8-10.6) k/uL Hct (39.0-53.0) % MCHC (31.0-37.0) g/dL Neutrophils # (1.3-7.7) k/uL Lymphocytes # (1.0-4.8) k/uL ABG pH (7.35-7.45) ABG pCO2 (35-45) mmHg ABG pO2 (83-108) mmHg ABG HCO3 (21-25) mmol/L ABG Total CO2 (19-24) mmol/L ABG O2 Saturation (94-97) % Sodium (137-145) mmol/L Potassium (3.5-5.1) mmol/L Chloride 109 H (98-107) mmol/L Carbon Dioxide 9 L* 12 L (22-30) mmol/L BUN 50 H (9-20) mg/dL Creatinine 1.70 H 1.50 H (0.66-1.25) mg/dL Glucose 1215 H* 1037 H* (74-99) mg/dL POC Glucose (mg/dL) >600 H (75-99) mg/dL Plasma Lactic Acid Alfonso (0.7-2.0) mmol/L Calcium (8.4-10.2) mg/dL Magnesium (1.6-2.3) mg/dL Total Bilirubin (0.2-1.3) mg/dL AST (17-59) U/L Alkaline Phosphatase (38-126) U/L Urine Glucose (UA) (Negative) Urine Ketones (Negative) Urine Blood (Negative) Urine Bacteria (None) /hpf Urine Mucus (None) /hpf 09/24/17 09/24/17 09/24/17 Range/Units 20:27 20:54 22:07 WBC (3.8-10.6) k/uL Hct (39.0-53.0) % MCHC (31.0-37.0) g/dL Neutrophils # (1.3-7.7) k/uL Lymphocytes # (1.0-4.8) k/uL ABG pH 7.26 L (7.35-7.45) ABG pCO2 31 L (35-45) mmHg ABG pO2 (83-108) mmHg ABG HCO3 14 L (21-25) mmol/L ABG Total CO2 15 L (19-24) mmol/L ABG O2 Saturation (94-97) % Sodium (137-145) mmol/L Potassium (3.5-5.1) mmol/L Chloride (98-107) mmol/L Carbon Dioxide (22-30) mmol/L BUN (9-20) mg/dL Creatinine (0.66-1.25) mg/dL Glucose 850 H* (74-99) mg/dL POC Glucose (mg/dL) (75-99) mg/dL Plasma Lactic Acid Alfonso 2.1 H* (0.7-2.0) mmol/L Calcium (8.4-10.2) mg/dL Magnesium (1.6-2.3) mg/dL Total Bilirubin (0.2-1.3) mg/dL AST (17-59) U/L Alkaline Phosphatase (38-126) U/L Urine Glucose (UA) (Negative) Urine Ketones (Negative) Urine Blood (Negative) Urine Bacteria (None) /hpf Urine Mucus (None) /hpf 09/24/17 09/25/17 09/25/17 Range/Units 23:07 00:19 00:24 WBC (3.8-10.6) k/uL Hct (39.0-53.0) % MCHC (31.0-37.0) g/dL Neutrophils # (1.3-7.7) k/uL Lymphocytes # (1.0-4.8) k/uL ABG pH (7.35-7.45) ABG pCO2 (35-45) mmHg ABG pO2 (83-108) mmHg ABG HCO3 (21-25) mmol/L ABG Total CO2 (19-24) mmol/L ABG O2 Saturation (94-97) % Sodium 146 H (137-145) mmol/L Potassium (3.5-5.1) mmol/L Chloride 115 H (98-107) mmol/L Carbon Dioxide 17 L (22-30) mmol/L BUN (9-20) mg/dL Creatinine 1.30 H (0.66-1.25) mg/dL Glucose 720 H* 622 H* (74-99) mg/dL POC Glucose (mg/dL) (75-99) mg/dL Plasma Lactic Acid Alfonso (0.7-2.0) mmol/L Calcium (8.4-10.2) mg/dL Magnesium (1.6-2.3) mg/dL Total Bilirubin (0.2-1.3) mg/dL AST (17-59) U/L Alkaline Phosphatase (38-126) U/L Urine Glucose (UA) 4+ H (Negative) Urine Ketones 2+ H (Negative) Urine Blood Small H (Negative) Urine Bacteria Rare H (None) /hpf Urine Mucus Rare H (None) /hpf 09/25/17 09/25/17 09/25/17 Range/Units 01:45 03:02 03:57 WBC (3.8-10.6) k/uL Hct (39.0-53.0) % MCHC (31.0-37.0) g/dL Neutrophils # (1.3-7.7) k/uL Lymphocytes # (1.0-4.8) k/uL ABG pH (7.35-7.45) ABG pCO2 (35-45) mmHg ABG pO2 (83-108) mmHg ABG HCO3 (21-25) mmol/L ABG Total CO2 (19-24) mmol/L ABG O2 Saturation (94-97) % Sodium (137-145) mmol/L Potassium (3.5-5.1) mmol/L Chloride (98-107) mmol/L Carbon Dioxide (22-30) mmol/L BUN (9-20) mg/dL Creatinine (0.66-1.25) mg/dL Glucose 501 H* (74-99) mg/dL POC Glucose (mg/dL) 405 H 313 H (75-99) mg/dL Plasma Lactic Acid Alfonso (0.7-2.0) mmol/L Calcium (8.4-10.2) mg/dL Magnesium (1.6-2.3) mg/dL Total Bilirubin (0.2-1.3) mg/dL AST (17-59) U/L Alkaline Phosphatase (38-126) U/L Urine Glucose (UA) (Negative) Urine Ketones (Negative) Urine Blood (Negative) Urine Bacteria (None) /hpf Urine Mucus (None) /hpf 09/25/17 09/25/17 09/25/17 Range/Units 04:36 04:36 05:05 WBC 11.6 H (3.8-10.6) k/uL Hct (39.0-53.0) % MCHC (31.0-37.0) g/dL Neutrophils # 10.0 H (1.3-7.7) k/uL Lymphocytes # 0.7 L (1.0-4.8) k/uL ABG pH (7.35-7.45) ABG pCO2 (35-45) mmHg ABG pO2 (83-108) mmHg ABG HCO3 (21-25) mmol/L ABG Total CO2 (19-24) mmol/L ABG O2 Saturation (94-97) % Sodium 146 H (137-145) mmol/L Potassium (3.5-5.1) mmol/L Chloride 116 H (98-107) mmol/L Carbon Dioxide 21 L (22-30) mmol/L BUN 33 H (9-20) mg/dL Creatinine (0.66-1.25) mg/dL Glucose 382 H (74-99) mg/dL POC Glucose (mg/dL) 285 H (75-99) mg/dL Plasma Lactic Acid Alfonso (0.7-2.0) mmol/L Calcium (8.4-10.2) mg/dL Magnesium 3.5 H (1.6-2.3) mg/dL Total Bilirubin (0.2-1.3) mg/dL AST 15 L (17-59) U/L Alkaline Phosphatase (38-126) U/L Urine Glucose (UA) (Negative) Urine Ketones (Negative) Urine Blood (Negative) Urine Bacteria (None) /hpf Urine Mucus (None) /hpf 09/25/17 09/25/17 09/25/17 Range/Units 05:59 07:03 08:12 WBC (3.8-10.6) k/uL Hct (39.0-53.0) % MCHC (31.0-37.0) g/dL Neutrophils # (1.3-7.7) k/uL Lymphocytes # (1.0-4.8) k/uL ABG pH (7.35-7.45) ABG pCO2 (35-45) mmHg ABG pO2 (83-108) mmHg ABG HCO3 (21-25) mmol/L ABG Total CO2 (19-24) mmol/L ABG O2 Saturation (94-97) % Sodium (137-145) mmol/L Potassium (3.5-5.1) mmol/L Chloride (98-107) mmol/L Carbon Dioxide (22-30) mmol/L BUN (9-20) mg/dL Creatinine (0.66-1.25) mg/dL Glucose (74-99) mg/dL POC Glucose (mg/dL) 369 H 289 H 290 H (75-99) mg/dL Plasma Lactic Acid Alfonso (0.7-2.0) mmol/L Calcium (8.4-10.2) mg/dL Magnesium (1.6-2.3) mg/dL Total Bilirubin (0.2-1.3) mg/dL AST (17-59) U/L Alkaline Phosphatase (38-126) U/L Urine Glucose (UA) (Negative) Urine Ketones (Negative) Urine Blood (Negative) Urine Bacteria (None) /hpf Urine Mucus (None) /hpf 09/25/17 09/25/17 09/25/17 Range/Units 09:18 10:07 11:11 WBC (3.8-10.6) k/uL Hct (39.0-53.0) % MCHC (31.0-37.0) g/dL Neutrophils # (1.3-7.7) k/uL Lymphocytes # (1.0-4.8) k/uL ABG pH (7.35-7.45) ABG pCO2 (35-45) mmHg ABG pO2 (83-108) mmHg ABG HCO3 (21-25) mmol/L ABG Total CO2 (19-24) mmol/L ABG O2 Saturation (94-97) % Sodium (137-145) mmol/L Potassium (3.5-5.1) mmol/L Chloride (98-107) mmol/L Carbon Dioxide (22-30) mmol/L BUN (9-20) mg/dL Creatinine (0.66-1.25) mg/dL Glucose (74-99) mg/dL POC Glucose (mg/dL) 321 H 323 H 270 H (75-99) mg/dL Plasma Lactic Acid Alfonso (0.7-2.0) mmol/L Calcium (8.4-10.2) mg/dL Magnesium (1.6-2.3) mg/dL Total Bilirubin (0.2-1.3) mg/dL AST (17-59) U/L Alkaline Phosphatase (38-126) U/L Urine Glucose (UA) (Negative) Urine Ketones (Negative) Urine Blood (Negative) Urine Bacteria (None) /hpf Urine Mucus (None) /hpf 09/25/17 09/25/17 09/25/17 Range/Units 11:48 13:14 16:56 WBC (3.8-10.6) k/uL Hct (39.0-53.0) % MCHC (31.0-37.0) g/dL Neutrophils # (1.3-7.7) k/uL Lymphocytes # (1.0-4.8) k/uL ABG pH (7.35-7.45) ABG pCO2 (35-45) mmHg ABG pO2 (83-108) mmHg ABG HCO3 (21-25) mmol/L ABG Total CO2 (19-24) mmol/L ABG O2 Saturation (94-97) % Sodium (137-145) mmol/L Potassium (3.5-5.1) mmol/L Chloride 112 H (98-107) mmol/L Carbon Dioxide 20 L (22-30) mmol/L BUN 24 H (9-20) mg/dL Creatinine (0.66-1.25) mg/dL Glucose 327 H (74-99) mg/dL POC Glucose (mg/dL) 271 H 354 H (75-99) mg/dL Plasma Lactic Acid Alfonso (0.7-2.0) mmol/L Calcium 8.1 L (8.4-10.2) mg/dL Magnesium (1.6-2.3) mg/dL Total Bilirubin (0.2-1.3) mg/dL AST (17-59) U/L Alkaline Phosphatase (38-126) U/L Urine Glucose (UA) (Negative) Urine Ketones (Negative) Urine Blood (Negative) Urine Bacteria (None) /hpf Urine Mucus (None) /hpf Microbiology - Last 24 Hours (Table) 09/24/17 17:10 Urine Culture - Preliminary Urine,Catheterized 09/24/17 18:50 Group A Strep Throat Culture - Preliminary Throat Assessment and Plan Assessment: DKA with likely component of HHS -Patient off insulin drip after Levemir injection. Start Levemir 40 units twice a day, NovoLog 12 units with meal in addition to sliding scale -Accu-Cheks every before meals and at bedtime -DC IV fluids as patient is tolerating a diet. -Await hemoglobin A1c -outreach educator consultation -dietitian recs -Will need PCP on discharge. Will need ophthalmologic evaluation and diabetic foot exam. - will need lisinopril prior to discharge Hypernatremia - improved - stop IVF now that patient is eating - repeat BMP in AM Acute kidney injury, improving -Likely secondary to dehydration -Continue with IV fluids -Repeat basic metabolic profile in a.m. -Avoid additional nephrotoxic agents -If no improvement in a.m. we'll consider nephrology consult and renal ultrasound Morbid obesity -Structured outpatient weight loss Thrush -Nystatin swish and swallow Severe metabolic acidosis, resolved Elevated lactic acid, resolved Hyperkalemia, resolved DVT prophylaxis: Lovenox Discussed with: , family, nursing, Dr. Conner Anticipated discharge: 2-[address]: Home A total of 35 minutes was spent on the care of this complex patient more than 50 % of the time was spent in counseling and care coordination.
[2017-09-25 20:39] LABS: Glucose,Whole Blood 367 mg/dL (75-99)
[2017-09-26 04:12] LABS: Glucose,Whole Blood 280 mg/dL (75-99)
[2017-09-26 05:48] LABS: Glucose,Whole Blood 271 mg/dL (75-99)
[2017-09-26 06:23] LABS: Basophils % (A) 0 %; Eosinophils # (A) 0.2 k/uL (0-0.7); Eosinophils % (A) 4 %; HCT 39.5 % (39.0-53.0); HGB 13.1 gm/dL (13.0-17.5); Lymphocytes # (A) 1.4 k/uL (1.0-4.8); Lymphocytes % (A) 26 %; MCH 28.8 pg (25.0-35.0); MCHC 33.1 g/dL (31.0-37.0); Mean Platelet Volume 8.5; Monocytes # (A) 0.2 k/uL (0-1.0); Monocytes % (A) 4 %; Neutrophils # (A) 3.6 k/uL (1.3-7.7); Neutrophils % (A) 66 %; Platelet Count 166 k/uL (150-450); RBC 4.54 m/uL (4.30-5.90); RDW 14.3 % (11.5-15.5); WBC 5.5 k/uL (3.8-10.6)
[2017-09-26] MEDS: INSULIN ASPART 100 UNIT/ML 1 ML 10 ML VIAL SQ SCH ×6 (06:35→20:30)
[2017-09-26 06:38] LABS: Anion Gap 6 mmol/L; Calcium 8.8 mg/dL (8.4-10.2); Carbon Dioxide 22 mmol/L (22-30); Chloride 114 mmol/L (98-107); Glucose 302 mg/dL (74-99); Sodium 142 mmol/L (137-145)
[2017-09-26 06:50] LABS: Potassium 5.4 mmol/L (3.5-5.1)
[2017-09-26 06:51] LABS: Blood Urea Nitrogen 22 mg/dL (9-20); Magnesium 2.7 mg/dL (1.6-2.3); Phosphorus 2.2 mg/dL (2.5-4.5)
[2017-09-26] MEDS: PANTOPRAZOLE 40 MG/10 ML VIAL IV SCH (08:06)
[2017-09-26] MEDS: ENOXAPARIN 40 MG/0.4 ML SYRINGE SQ SCH (08:06)
[2017-09-26] MEDS: NYSTATIN 100,000 UNIT/ML SUSP 500,000 UNIT/5 ML CUP PO SCH ×4 (08:07→20:30)
[2017-09-26] MEDS: DOCUSATE 100 MG CAP PO SCH ×2 (08:07→20:30)
[2017-09-26] MEDS: LISINOPRIL 10 MG TAB PO SCH (08:21)
[2017-09-26] MEDS: INSULIN DETEMIR 100 UNIT/ML 10 ML VIAL SQ SCH (10:16)
--- NOTE | 2017-09-26 10:19 | P.PN ---
Subjective Progress Note Date: 09/26/17 Principal diagnosis: dry mouth Patient is a 47-year-old male with no known past medical history who presented to the ER with complaints of fatigue. In the ER he underwent an extensive evaluation. He was found to have DKA. Initial laboratory analysis showed hyperglycemia, hyponatremia, acute kidney injury, glucose of 1513, elevated lactic acid, potassium of 7.3, and an anion gap metabolic acidosis. He was also found to have a positive serum acetone. Initial ABG showed a pH of 7.17. Initial KUB and chest x-ray were negative. Urinalysis did not show any signs of infection. He was given 2L of fluid and started on on an insulin drip. Suggested was made for admission to ICU. He received another liter of normal saline. His repeat basic metabolic profile showed hypernatremia when corrected for the glucose. His IV fluids were transitioned to 0.45 normal saline and he was maintained on an insulin drip. He had serial electrolytes, magnesium, phosphorus levels every 4 hours. He had low glucose monitoring every 1 hour. By the morning of 09/25 his anion gap was closed for 2 blood draws. He was subsequently transitioned off the insulin drip and onto Levemir twice daily, insulin sliding scale, and NovoLog fixed dose with meals. He was seen by pulmonary. He was also evaluated by the dietitian. He was found have thrush and was started on nystatin. His blood sugars remained elevated and his insulin was adjusted. Patient seen and examined at bedside. He is feeling well today. Sore throat and dry mouth or getting better. No nausea or vomiting. Tolerating diet well. We discussed at length uses of insulin, dietary restrictions, and meeting with the clinical educator. I do think she would benefit from outpatient diabetic education classes. Objective - Vital Signs Vital signs: Vital Signs Temp 97.5 F L 09/26/17 08:00 Pulse 97 09/26/17 08:00 Resp 18 09/26/17 08:00 BP 141/89 09/26/17 08:00 Pulse Ox 96 09/26/17 08:00 Intake & Output 09/25/17 09/26/17 09/26/17 18:59 06:59 18:59 Intake Total 1146.005 50 250 Output Total 1155 Balance -8.995 50 250 Weight 108.4 kg 106.2 kg Intake: IV 900 50 10 Dextrose 5%-0.45% NaCl 1, 900 000 ml @ 150 mls/hr IV . Q6H44M BRANDYN with Potassium Chloride 20 meq Rx#: [id number] Invasive Line 1 30 10 Invasive Line 2 20 Intake, IV Titration 6.005 Amount Insulin Regular 100 unit 6.005 In Sodium Chloride 0.9% 100 ml @ 11.9 UNIT/HR 12. 01 mls/hr IV .Q8H25M BRANDYN Rx#:[id number] Oral 240 240 Output: Urine 1155 Other: Voiding Method Toilet Toilet Toilet Urinal Urinal # Voids 1 - Exam General: non toxic, no distress, appears at stated age, Obese Derm: warm, dry Head: atraumatic, normocephalic, symmetric Eyes: EOMI, no lid lag, anicteric sclera Mouth: no lip lesion, mucus membranes moist Cardiovascular: S1S2 reg, no murmur, positive posterior tibial pulse bilateral, Lungs: decreased bs b/l bases, no rhonchi, no rales , no accessory muscle use Abdominal: soft, nontender to palpation, no guarding, no appreciable organomegaly Ext: no gross muscle atrophy, no edema, no contractures Neuro: CN II-XI grossly intact, no focal neuro deficits Psych: Alert, oriented, appropriate affect - Labs CBC & Chem 7: 09/26/17 06:04 09/26/17 06:04 Labs: Abnormal Lab Results - Last 24 Hours (Table) 09/25/17 09/25/17 09/25/17 Range/Units 11:11 11:48 13:14 Potassium (3.5-5.1) mmol/L Chloride 112 H (98-107) mmol/L Carbon Dioxide 20 L (22-30) mmol/L BUN 24 H (9-20) mg/dL Glucose 327 H (74-99) mg/dL POC Glucose (mg/dL) 270 H 271 H (75-99) mg/dL Calcium 8.1 L (8.4-10.2) mg/dL Phosphorus (2.5-4.5) mg/dL Magnesium (1.6-2.3) mg/dL 09/25/17 09/25/17 09/26/17 Range/Units 16:56 20:38 04:10 Potassium (3.5-5.1) mmol/L Chloride (98-107) mmol/L Carbon Dioxide (22-30) mmol/L BUN (9-20) mg/dL Glucose (74-99) mg/dL POC Glucose (mg/dL) 354 H 367 H 280 H (75-99) mg/dL Calcium (8.4-10.2) mg/dL Phosphorus (2.5-4.5) mg/dL Magnesium (1.6-2.3) mg/dL 09/26/17 09/26/17 Range/Units 05:45 06:04 Potassium 5.4 H (3.5-5.1) mmol/L Chloride 114 H (98-107) mmol/L Carbon Dioxide (22-30) mmol/L BUN 22 H (9-20) mg/dL Glucose 302 H (74-99) mg/dL POC Glucose (mg/dL) 271 H (75-99) mg/dL Calcium (8.4-10.2) mg/dL Phosphorus 2.2 L (2.5-4.5) mg/dL Magnesium 2.7 H (1.6-2.3) mg/dL Microbiology - Last 24 Hours (Table) 09/24/17 17:10 Urine Culture - Preliminary Urine,Catheterized Assessment and Plan Assessment: DM2 with hyperglycemia -Accu-Cheks every before meals and at bedtime -Levemir increased to 44 units twice daily, NovoLog 10 units with meals and sliding scale insulin -He was clinical educator and a.m. -Await hemoglobin A1c -Had proteinuria on initial urinalysis started on lisinopril. Hyperkalemia secondary to hemolysis -Recheck in a.m. Morbid obesity- BMI 34.6 -Structured outpatient weight loss Thrush -Nystatin swish and swallow DKA resolved Severe metabolic acidosis, resolved Elevated lactic acid, resolved Hyperkalemia, resolved Hypernatremia, resolved Acute kidney injury, resolved Plan is for discharge in a.m. if blood sugars remain in the 200s to low 300s. Will need to be set up with a glucometer and insulin for discharge as well as diabetic education classes. I think the patient would benefit from a flex pen and not vitals at discharge. DVT prophylaxis: Lovenox Discussed with: , family, nursing, Dr. Conner Anticipated discharge: 2-[address]: Home A total of 35 minutes was spent on the care of this complex patient more than 50 % of the time was spent in counseling and care coordination.
[2017-09-26 11:51] VITALS: RESP 16
[2017-09-26 12:11] LABS: Glucose,Whole Blood 430 mg/dL (75-99)
[2017-09-26 12:12] LABS: Glucose,Whole Blood 414 mg/dL (75-99)
[2017-09-26 17:40] LABS: Glucose,Whole Blood 401 mg/dL (75-99)
[2017-09-26 20:25] LABS: Glucose,Whole Blood 307 mg/dL (75-99)
[2017-09-26] MEDS ORDERED: INSULIN DETEMIR 100 UNIT/ML 10 ML VIAL SQ SCH (21:00)
[2017-09-27 02:38] LABS: Glucose,Whole Blood 254 mg/dL (75-99)
[2017-09-27 05:48] VITALS: TEMP 98.2
[2017-09-27 07:15] LABS: Glucose,Whole Blood 245 mg/dL (75-99)
[2017-09-27] MEDS: INSULIN DETEMIR 100 UNIT/ML 10 ML VIAL SQ SCH (07:48)
[2017-09-27] MEDS: INSULIN ASPART 100 UNIT/ML 1 ML 10 ML VIAL SQ SCH ×4 (07:48→12:37)
[2017-09-27] MEDS: NYSTATIN 100,000 UNIT/ML SUSP 500,000 UNIT/5 ML CUP PO SCH ×2 (07:53→12:40)
[2017-09-27] MEDS: PANTOPRAZOLE 40 MG/10 ML VIAL IV SCH (07:54)
[2017-09-27] MEDS: ENOXAPARIN 40 MG/0.4 ML SYRINGE SQ SCH (07:54)
[2017-09-27] MEDS: LISINOPRIL 10 MG TAB PO SCH (07:54)
[2017-09-27] MEDS: DOCUSATE 100 MG CAP PO SCH (07:54)
[2017-09-27 08:16] LABS: Basophils % (A) 0 %; Eosinophils # (A) 0.1 k/uL (0-0.7); Eosinophils % (A) 3 %; HCT 38.9 % (39.0-53.0); HGB 12.7 gm/dL (13.0-17.5); Lymphocytes # (A) 1.3 k/uL (1.0-4.8); Lymphocytes % (A) 37 %; MCH 28.9 pg (25.0-35.0); MCHC 32.6 g/dL (31.0-37.0); MCV 88.5 fL (80.0-100.0); Mean Platelet Volume 8.1; Monocytes # (A) 0.1 k/uL (0-1.0); Monocytes % (A) 4 %; Neutrophils % (A) 55 %; Platelet Count 156 k/uL (150-450); RDW 13.8 % (11.5-15.5); WBC 3.6 k/uL (3.8-10.6)
[2017-09-27 08:28] LABS: Anion Gap 7 mmol/L; Blood Urea Nitrogen 19 mg/dL (9-20); Calcium 9.1 mg/dL (8.4-10.2); Carbon Dioxide 26 mmol/L (22-30); Chloride 107 mmol/L (98-107); Glucose 260 mg/dL (74-99); Magnesium 2.5 mg/dL (1.6-2.3); Phosphorus 2.4 mg/dL (2.5-4.5); Potassium 4.5 mmol/L (3.5-5.1); Sodium 140 mmol/L (137-145)
[2017-09-27 09:21] VITALS: BP 153/97; PULSE 90
[2017-09-27 11:13] LABS: Glucose,Whole Blood 242 mg/dL (75-99)
[2017-09-28 08:21] LABS: Glucose,Whole Blood >600 mg/dL (75-99)
[2017-09-29 16:32] LABS: Hemoglobin A1C 13.3
--- NOTE | 2017-09-30 14:59 | P.DS ---
Providers Date of admission: 09/24/17 18:17 Attending physician: Rosa Bell DO Consults: 09/24/17 18:24 Consult Physician Stat Consulting Provider: Liliam Conner Consult Reason/Comments: ICU mgmt Do you want consulting provider notified?: Already Contacted Primary care physician: Stated None - Discharge Diagnosis(es) (1) DKA (diabetic ketoacidoses) Patient was initially admitted to intensive care unit for intensive fluid resuscitation insulin drip in usual DKA protocol. With this treatment his condition improved ketoacidosis resolved and he was able to be transitioned to subcu insulin and tolerated diet well Septic workup was negative. He was afebrile and did not have any significant leukocytosis. Blood and urine cultures were negative chest x-ray unremarkable. He did have some throat discomfort and strep test was negative. He was found to have mild thrush and he was started on nystatin solution. Current Visit: Yes Status: Acute (2) Diabetes mellitus, new onset Patient was during this admission diagnosed with diabetes mellitus and given high blood glucose and diabetic ketoacidosis he was started on subcu insulin. He is insulin was titrated to Levemir 45 units twice a day with 13 units of aspart with meals and sliding scale. With this regimen he is sugars tablet in the range of 2 to 250s. He was eventually deemed stable for discharge after all his metabolic derangements resolved nausea resolved and he was tolerating diet. He received diabetic education from myself and from our chemical educator and patient felt comfortable to be injecting insulin monitor his glucose. I personally the patient on management of hypoglycemia he was provided with chewable glucose tablets. A1c was not checked and during this admission Current Visit: Yes Status: Acute (3) Hyperkalemia This was likely directed related to electrolyte shifts and acidosis and this resolved with insulin IV fluids and resolution of acidosis Current Visit: No Status: Acute (4) Renal insufficiency This is present on admission for acute kidney injury due to the volume depletion. Obese. Resolved with IV hydration. Patient was subsequently started on lisinopril due to elevated white pressures tolerated well creatinine and potassium stayed stable he was discharged home low-dose of lisinopril with a plan to follow-up with BMP in 1 week Current Visit: No Status: Acute (5) Hypertension Patient was found to have blood pressures elevated 1 7180s consistently. After his renal injury and hyperkalemia resolved he was started on 10 mg of lisinopril which he tolerated well. He is to further titrate his his primary care physician and to repeat BMP in 1 week. Current Visit: Yes Status: Acute Hospital Course: This is a 47-year-old male without significant past medical history who came to emergency department with extreme fatigue, increased urination, weight loss, nausea vomiting. He was found to be in diabetic ketoacidosis. He was hyperglycemic with blood glucose of 1513 , acute kidney injury, potassium 7.3 and pH of 7.17 septic workup was negative. UA was unremarkable and chest x-ray was without any infiltrates and he was afebrile without significant leukocytosis. On the day of discharge I met with the patient and his sister in the room. He was doing quite well and Underwent an uneventful night. He did not have any nausea vomiting abdominal pain chest pain shortness of breath dysuria or any other discomfort. He was started on Levemir 44 units twice a day with 13 units of aspart pre-meal and sliding scale. This management his blood sugar stabilized in the range of 50s. Blood sugar was 260. He is tolerating diet well and has no any discomfort. No diarrhea or any significant constipation. REVIEW OF SYSTEMS: CONSTITUTIONAL: No fever or chills HEENT: No changes in vision or voice CARDIOVASCULAR: no chest pain or abnormal heart beats, or any swelling in ankles or feet. RESPIRATORY: No wheezing or coughing. GASTROINTESTINAL: No abdominal pain, no nausea no vomiting no constipation or diarrhea GENITOURINARY: no any urinary urgency, frequency or burning, and there has been no blood in her urine. no flank pain. MUSCULOSKELETAL: She notes full range of motion of all her joints without pain or swelling. NEUROLOGICAL: , no headache. no vision changes, or fainting. No numbness or tingling. General: No distress. Oriented x 3, normal mood and affect . Ambulating without difficulty. HEENT: Head: Normocephalic, atraumatic, no visible or palpable masses, depressions, or scaring, conjunctiva clear, sclera non-icteric, EOM intact, PERRL Oral: Mucous membranes moist, no mucosal lesions. Pharynx: Mucosa non-inflamed, no tonsillar hypertrophy or exudate Neck: Supple, without lesions, bruits, or adenopathy, thyroid non-enlarged and non-tender Heart: No cardiomegaly or thrills; regular rate and rhythm, no murmur or gallop Lungs: Clear to auscultation and percussion Abdomen: Bowel sounds normal, no tenderness, organomegaly, masses, or hernia Back: Spine normal without deformity or tenderness, no CVA tenderness Extremities: No amputations or deformities, cyanosis, edema or varicosities, peripheral pulses intact Musculoskeletal: No peripheral joint swelling, pain, erythema. No clubbing Skin: Good turgor, no rash, unusual bruising or prominent lesions Neurologic: CN 2-12 normal. Sensation to pain, touch, and proprioception normal. DTRs normal in upper and lower extremities. No pathologic reflexes. Psychiatric: Oriented X3, intact recent and remote memory, judgment and insight , normal mood and affect. I had the [place] extensive conversation and discussion with the patient and his daughter. I explained all the aspects of diabetic care to let us knowledge. Patient felt comfortable to use insulin. We discussed in detail hypoglycemia and management. Patient is to be to further with our chemical educator. Patient is to follow up closely with his PCP in few days for further adjustment of his insulin. He is to follow up also to check his BMP as well and A1c. Pertinent Studies: As mentioned hospital course. Plan - Discharge Summary Discharge Rx Participant: No New Discharge Prescriptions: New Dextrose Chew [Glucose Chew Tab] 4 tab PO Q15M #20 chewable Insulin Aspart [NovoLOG (formulary)] 10 unit SQ AC-TID #1 pen Insulin Detemir [Levemir] 44 unit SQ BID #1 pen Lisinopril [Zestril] 10 mg PO DAILY #14 tab Nystatin 100,000 Unit/ml Susp [Mycostatin Oral Susp] 500,000 unit PO QID 7 Days #60 cup Discharge Medication List Dextrose Chew [Glucose Chew Tab] 4 tab PO Q15M #20 chewable 09/27/17 [Rx] Insulin Aspart [NovoLOG (formulary)] 10 unit SQ AC-TID #1 pen 09/27/17 [Rx] Insulin Detemir [Levemir] 44 unit SQ BID #1 pen 09/27/17 [Rx] Lisinopril [Zestril] 10 mg PO DAILY #14 tab 09/27/17 [Rx] Nystatin 100,000 Unit/ml Susp [Mycostatin Oral Susp] 500,000 unit PO QID 7 Days #60 cup 09/27/17 [Rx] Follow up Appointment(s)/Referral(s): Shahbaz Gómez MD [STAFF PHYSICIAN] - 1 Week None,Stated [Primary Care Provider] - 1-2 days Lea Armstrong MD [REFERRING] - 2 Weeks Activity/Diet/Wound Care/Special Instructions: diabetic diet BMP in 1 week Discharge Disposition: HOME SELF-CARE
== END 2017-09-27 16:46 | disposition home or self-care (01) | DRG 638 ==
LOC: EC 16:02 → 6ICU 18:17 → 6SEL 09-25 16:39 → 5MS5E 09-26 11:01
PROVIDERS: ADMIT Internal Medicine; ATTEND Internal Medicine
DX: E11.10 Type 2 diabetes mellitus with ketoacidosis without coma (principal); N17.9 Acute kidney failure, unspecified; E87.0 Hyperosmolality and hypernatremia; E87.1 Hypo-osmolality and hyponatremia; B37.0 Candidal stomatitis; E87.5 Hyperkalemia; E66.01 Morbid (severe) obesity due to excess calories; K59.00 Constipation, unspecified; E86.0 Dehydration; H53.2 Diplopia; Z68.34 Body mass index [BMI] 34.0-34.9, adult; Z80.1 Family history of malignant neoplasm of trachea, bronchus and lung; Z82.5 Family history of asthma and other chronic lower respiratory diseases; Z82.49 Family history of ischemic heart disease and other diseases of the circulatory system
CPT/HCPCS: 36415; 36600; 71046; 74018; 80048; 80051; 80053; 81001; 82009; 82565; 82805; 82947; 83036; 83605; 83735; 84100; 85025; 87081; 87086; 87430; 93005; 96360; 99291